=== PATIENT | male | born 1945 | race Caucasian/White ===

== ENCOUNTER 2016-10-24 14:33 | Outpatient (CLI) | payer MEDICARE, OTHER ==
[2013-03-01 10:06] VITALS: BP 167/86
== END 2016-10-24 14:34 ==
LOC: POD 14:33
PROVIDERS: ATTEND Podiatrist
DX: B35.1 Tinea unguium (principal); M79.674 Pain in right toe(s); M79.675 Pain in left toe(s)
CPT/HCPCS: 11721; G0463

== ENCOUNTER 2017-01-09 13:56 | Outpatient (CLI) | payer MEDICARE, OTHER ==
[2013-03-01 10:06] VITALS: BP 167/86
== END 2017-01-09 13:57 ==
LOC: POD 13:56
PROVIDERS: ATTEND Podiatrist
DX: B35.1 Tinea unguium (principal); M79.674 Pain in right toe(s); M79.675 Pain in left toe(s)
CPT/HCPCS: 11721; G0463

== ENCOUNTER 2017-04-10 13:38 | Outpatient (CLI) | payer MEDICARE, OTHER ==
[2013-03-01 10:06] VITALS: BP 167/86
== END 2017-04-10 13:40 ==
LOC: POD 13:38
PROVIDERS: ATTEND Podiatrist
DX: B35.1 Tinea unguium (principal); M79.674 Pain in right toe(s); M79.675 Pain in left toe(s)
CPT/HCPCS: 11721; G0463

== ENCOUNTER 2017-04-22 10:37 | Outpatient (CLI) | payer MEDICARE, OTHER ==
[2013-03-01 10:06] VITALS: BP 167/86
== END 2017-04-22 10:40 ==
LOC: LAB 10:37
PROVIDERS: ATTEND Family Medicine
DX: G60.9 Hereditary and idiopathic neuropathy, unspecified (principal)
CPT/HCPCS: 36415; 84439; 84443; 84481

== ENCOUNTER 2017-07-10 13:36 | Outpatient (CLI) | payer MEDICARE, OTHER ==
[2013-03-01 10:06] VITALS: BP 167/86
== END 2017-07-10 13:40 ==
LOC: POD 13:36
PROVIDERS: ATTEND Podiatrist
DX: B35.1 Tinea unguium (principal); M79.674 Pain in right toe(s); M79.675 Pain in left toe(s)
CPT/HCPCS: 11721; G0463

== ENCOUNTER 2017-07-15 09:37 | Outpatient (CLI) | payer MEDICARE, OTHER ==
[2013-03-01 10:06] VITALS: BP 167/86
[2017-07-15 10:39] LABS: eGFR (African) > 60; eGFR (Non-African) > 60
== END 2017-07-15 09:40 ==
LOC: LAB 09:37
PROVIDERS: ATTEND Family Medicine
DX: E78.5 Hyperlipidemia, unspecified (principal); R73.9 Hyperglycemia, unspecified
CPT/HCPCS: 36415; 80053; 80061; 83036

== ENCOUNTER 2017-08-13 07:54 | Outpatient (CLI) | payer MEDICARE, OTHER ==
[2013-03-01 10:06] VITALS: BP 167/86
--- NOTE | 2017-08-13 10:51 | Diagnostic Imaging Report ---
SILVER HEBERT [facility] [address] [facility].[address] [address] Report Submission Date: Aug 13, 2017 8:40:17 AM CHILD AND ADOLESCENT THERAPIST Patient Study Name: LOLA RODRIGUEZ Date: Aug 13, 2017 8:10:23 AM CHILD AND ADOLESCENT THERAPIST Modality Type: US Gender: M Description: DUPLEX AORTA VC ILIAC LIMIT [id number] : 47 Institution: [facility] Physician: SILVER HEBERT Examination: Ultrasound aorta History: Evaluate for aneurysm Comparison exams: None available Findings: Proximal aorta measures 2.8 cm maximally. Mid aorta measures 2.2 cm maximally. Distal aorta measures 1.8 cm maximally. Iliac vessels measure 1.0 cm. No appreciable peripheral calcification or thrombus. Impression: No evidence for abdominal aortic aneurysm Electronically signed on Aug 13, 2017 8:40:17 AM CHILD AND ADOLESCENT THERAPIST by: Frankie ELLISON
== END 2017-08-13 07:55 ==
LOC: RAD 07:54
PROVIDERS: ATTEND Family Medicine
DX: Z82.49 Family history of ischemic heart disease and other diseases of the circulatory system (principal)
CPT/HCPCS: 93979

== ENCOUNTER 2017-10-09 13:16 | Outpatient (CLI) | payer MEDICARE, OTHER ==
[2013-03-01 10:06] VITALS: BP 167/86
== END 2017-10-09 13:17 ==
LOC: POD 13:16
PROVIDERS: ATTEND Podiatrist
DX: M79.674 Pain in right toe(s) (principal); M79.675 Pain in left toe(s)
CPT/HCPCS: 11721; G0463

== ENCOUNTER 2017-11-03 16:38 | Emergency (ER) | payer MEDICARE, OTHER ==
--- NOTE | 2017-11-03 16:56 | ED Physician Documentation ---
General Adult - HISTORIAN Historian: patient - HPI Chief Complaint: General Adult (chest wall pain post falling) Additional Information: Patient slipped and fell on deck steps and hit his right posterior lateral rib cage on a corner of the step. Has had pain since that time. Worse with breathing and movement. Onset: hours (10:00 this AM) Timing: still present Severity: moderate Modifying Factors: worse with deep breathing movement, coughing - ROS CONST: no problems. denies: fever, chills - PAST HX Past History: other (carotid stenosis, depressive disorder, PVD, sp CVA, hyperlipidemia) Other History: none Surgeries/Procedures: other (cataract OD, appendectomy) Immunizations: referred to PCP Allergies/Adverse Reactions: Allergies Allergy/AdvReac Type Severity Reaction Status Date / Time No Known Allergies Allergy Verified 11/03/17 16:58 Home Medications: Ambulatory Orders Medication Instructions Recorded Hydrocodone/Acetaminophen 1 each PO Q4 PRN #20 tablet 11/03/17 [Hydrocodon-Acetaminophen 5-325] - SOCIAL HX Smoking History: quit greater than 1 year (1999) Alcohol Use: occasionally Drug Use: none - FAMILY HX Family History: Yes (CAD) - VITAL SIGNS Vital Signs: Vital Signs Temp Pulse Resp BP Pulse Ox 167/86 03/01/13 10:05 - REVIEWED ASSESSMENTS Nursing Assessment Reviewed: Yes Vitals Reviewed: Yes ED Results Lab/Radiology - Radiology Radiology Impressions: Examination: Plain film right ribs History: FELL DOWN STAIRS THIS MORNING, PAIN IN LOWER/LATERAL/POSTERIOR RIBS (Hx ) Findings: 3 views of the right ribs demonstrates normal cortical margins. No fracture or dislocation. Right lung base costophrenic margin blunting. Impression: No rib fracture/abnormality. General Adult Physical Exam - PHYSICAL EXAM GENERAL APPEARANCE: mild distress EENT: eye inspection normal, ENT inspection normal, pharynx normal, no signs of dehydration NECK: normal inspection, thyroid normal, supple. No: lymphadenopathy, stiff neck RESPIRATORY: no resp distress, breath sounds normal, other (chest wall tender to palpation over the lower posterior right ribs, no ecchymosis noted, no bony abnl noted). No: wheezes, rales, rhonchi CVS: reg rate & rhythm, heart sounds normal, equal pulses, no murmur ABDOMEN: soft, no organomegaly SKIN: warm/dry, normal color EXTREMITIES: non-tender, normal range of motion NEURO: oriented X3, CN's nml as tested, motor nml, sensation nml, mood/affect nml, cognition normal Discharge Clincal Impression: Chest wall contusion Qualifiers: Encounter type: initial encounter Laterality: right Qualified Code(s): S20.211A - Contusion of right front wall of thorax, initial encounter Prescriptions: Hydrocodone/Acetaminophen [Hydrocodon-Acetaminophen 5-325] 1 each PO Q4 PRN #20 tablet PRN Reason: Pain Referrals: Bakari Ravi MD [Primary Care Provider] - 2 Days Additional Instructions: Try to take some deep breathes every hour as instructed. Splint side as needed. Take some Ibuprofen 200mg tablets (3-4 tab) every 8 hours with food as needed or Aleve 220mg (two tablets) twice a day with food as needed for pain. Decision to Admit: NO Date of Decison to Admit: 11/03/17 Decision Time: 17:12
[2017-11-03 16:58] VITALS: BP 165/67
[2017-11-03] MEDS: KETOROLAC TROMETHAMINE 60 MG/2 ML VIAL IM ONE (17:03)
--- NOTE | 2017-11-03 17:31 | Diagnostic Imaging Report ---
SILVER HEBERT [facility] [address] [facility].[address] [address] Report Submission Date: Nov 03, 2017 5:29:07 PM ENGAGEMENT SPECIALIST Patient Study Name: LOLA RODRIGUEZ Date: Nov 03, 2017 5:08:10 PM ENGAGEMENT SPECIALIST Modality Type: DX Gender: M Description: CHEST : 47 Institution: [facility] Physician: SILVER HEBERT Examination: Plain film right ribs History: FELL DOWN STAIRS THIS MORNING, PAIN IN LOWER/LATERAL/POSTERIOR RIBS (Hx ) Findings: 3 views of the right ribs demonstrates normal cortical margins. No fracture or dislocation. Right lung base costophrenic margin blunting. Impression: No rib fracture/abnormality. Electronically signed on Nov 03, 2017 5:29:07 PM ENGAGEMENT SPECIALIST by: Frankie ELLISON
== END 2017-11-03 18:00 | disposition home or self-care (01) ==
LOC: ED 16:38
DX: S20.211A Contusion of right front wall of thorax, initial encounter (principal); W19.XXXA Unspecified fall, initial encounter; Y92.9 Unspecified place or not applicable; Y93.9 Activity, unspecified; Y99.9 Unspecified external cause status
CPT/HCPCS: 71100; J1885; 96372; 99282; 99283

== ENCOUNTER 2017-12-11 15:43 | Outpatient (CLI) | payer MEDICARE, OTHER ==
[2017-12-11 16:03] LABS: BASOPHILS % 0.5 (0.0-1.5); EOSINOPHILS % 4.2 % (0.0-6.8); MEAN CORPUSCULAR HEMOGLOBIN 30.8 pg (28.0-34.0); MEAN CORPUSCULAR VOLUME 94.6 fl (80.0-100.0); NEUTROPHILS # 4.6 # k/uL (1.4-7.7)
[2017-12-11 16:16] LABS: eGFR (African) > 60; eGFR (Non-African) > 60
--- NOTE | 2017-12-11 16:33 | Diagnostic Imaging Report ---
[facility] [address] [facility].[address] [address] Report Submission Date: Dec 11, 2017 4:19:48 PM CDT Patient Study Name: LOLA RODRIGUEZ Date: Dec 11, 2017 4:01:53 PM CDT Modality Type: DX Gender: M Description: CHEST : 47 Institution: [facility] Physician: SILVER HEBERT Examination: PA and lateral chest. History: Evaluate lung garcia. PT STATES SOB, COUGH, CHEST PAIN FOR 3X DAYS. EX- SMOKER (Hx) Comparison exam: None provided. Findings: PA lateral chest demonstrate a normal cardiac and mediastinal silhouette. Blunting of the right costophrenic margin. No blunting of the left costophrenic margin. No apical infiltrate. Articular degenerative changes. Impression: Right lower lung infiltrate/effusion. Electronically signed on Dec 11, 2017 4:19:48 PM CDT by: Frankie ELLISON
== END 2017-12-11 15:44 ==
LOC: LAB 15:43
PROVIDERS: ATTEND Physician Assistant
DX: R07.9 Chest pain, unspecified (principal); R06.2 Wheezing
CPT/HCPCS: 36415; 71046; 80053; 84484; 85025

== ENCOUNTER 2018-01-08 13:39 | Outpatient (CLI) | payer MEDICARE, OTHER | END 2018-01-08 13:40 | LOC: POD 13:39 | PROVIDERS: ATTEND Podiatrist | DX: B35.1 Tinea unguium (principal); M79.674 Pain in right toe(s); M79.675 Pain in left toe(s) | CPT/HCPCS: 11721; G0463 ==

== ENCOUNTER 2018-04-09 13:56 | Outpatient (CLI) | payer MEDICARE, OTHER | END 2018-04-09 13:58 | LOC: POD 13:56 | PROVIDERS: ATTEND Podiatrist | DX: B35.1 Tinea unguium (principal); M79.674 Pain in right toe(s); M79.675 Pain in left toe(s) | CPT/HCPCS: 11721; G0463 ==

== ENCOUNTER 2018-07-07 15:05 | Outpatient (CLI) | payer MEDICARE, OTHER ==
[2018-07-07 15:57] LABS: MEAN CORPUSCULAR HEMOGLOBIN 30.7 pg (28.0-34.0)
[2018-07-07 15:58] LABS: BASOPHILS % 0.3 (0.0-1.5); NEUTROPHILS # 5.7 # k/uL (1.4-7.7)
[2018-07-07 16:04] LABS: eGFR (Non-African) > 60
--- NOTE | 2018-07-07 19:44 | Diagnostic Imaging Report ---
SILVER HEBERT [facility] [address] [facility].[address] [address] Report Submission Date: Jul 07, 2018 4:55:48 PM CDT Patient Study Name: LOLA RODRIGUEZ Date: Jul 07, 2018 3:15:51 PM CDT Modality Type: DX Gender: M Description: CHEST : 47 Institution: [facility] Physician: SILVER HEBERT Chest, PA and lateral History: Chest pain, shortness of breath Findings: Small right effusion is present. There is no pneumothorax. Left lung is clear. Heart size and pulmonary vascularity are normal. Since 11 December 2017, right effusion has increased. Impression: Increased right effusion. Electronically signed on Jul 07, 2018 4:55:48 PM CDT by: Blue ELLISON
== END 2018-07-07 15:10 | disposition home or self-care (01) ==
LOC: RT 15:05
PROVIDERS: ATTEND Family Medicine
DX: R07.89 Other chest pain (principal)
CPT/HCPCS: 36415; 71046; 80053; 84484; 85025

== ENCOUNTER 2018-11-30 09:25 | Outpatient (CLI) | payer MEDICARE, OTHER ==
[2018-11-30 10:07] LABS: eGFR (Non-African) > 60
== END 2018-11-30 09:35 ==
LOC: LAB 09:25
PROVIDERS: ATTEND Family Medicine
DX: E78.5 Hyperlipidemia, unspecified (principal); R73.9 Hyperglycemia, unspecified
CPT/HCPCS: 36415; 80053; 80061; 83036; 84550